=== PATIENT | male | born 2005 | race Caucasian/White ===

== ENCOUNTER 2025-01-09 17:15 | Emergency (ER) | payer BC, MEDICAID, SELFPAY ==
[2025-01-09 17:15] VITALS: BP 109/72; PULSE 86; RESP 19; TEMP 36.5; O2SAT 98; BMI 26.6
--- NOTE | 2025-01-09 17:17 | ED_ITS ---
<Statement entered by Ariana Reich DO - 01/09/25 22:26> I was consulted by the MARKIE, and we discussed the complexity of the problems being addressed. I approved the treatment and management plan for this patient's care in the emergency department, thus performing a substantive portion of the medical decision making. Ariana Reich DO Discharge Plan Disposition Patient Disposition: Home, Self-Care Condition: Good Prescriptions Prescriptions: No Action No Known Home Medications Referrals Follow up/Referrals: Lina Strange APRN [Primary Care Provider] - See instructions Activity Restrictions/Add. Instructions Additional Instructions/Restrictions: Please follow-up this week with your PCP. Patient needs to have further outpatient workup from neurology including MRI and neurology evaluation. If he has any decreased level of consciousness intractable vomiting intractable headache return to the emergency department immediately. Clinical Impressions Clinical Impression: Seizure-like activity Instructions Patient Instructions: DI for Seizure Disorder -- Adult, DI for Closed Head Injury Print Language Print Language: Ecuadorean Discharge ED Provider: Ariana Reich General Adult HPI <CHONG Hermosillo - Last Filed: 01/09/25 20:05> General Chief complaint: Seizure Stated complaint: cant walk Time Seen by Provider: 01/09/25 17:16 History of Present Illness HPI narrative: Patient presents for seizure-like activity. The patient is nonverbal with autism and cannot provide any history whatsoever. All of the history comes from the father at the bedside. The patient and his brother live in the basement of the parents home. Brother was playing on the computer and heard noises coming out of his brother's bedroom and he found his brother laid across the bed gurgling . He was awake but nonresponsive to any stimuli. At baseline patient is usually verbally and physically self stimulates this was different. The father noted that he was having gasping breaths and had spit at his mouth but he did not notice any tonic-clonic activity neither did the brother. Patient does not have a known seizure disorder and prior to this was his normal baseline. There is no report of cough chest pain shortness of breath headache exposure to recent illness nausea vomiting diarrhea. Related Data Home Medications ?Medication ?Instructions ?Recorded ?Confirmed No Known Home Medications 01/09/25 01/09/25 Allergies Allergy/AdvReac Type Severity Reaction Status Date / Time No Known Allergies Allergy Verified 01/09/25 17:43 PFSH <CHONG Hermosillo - Last Filed: 01/09/25 20:05> [facility] Disclaimer: The information contained in this section may have been updated after the patient was seen, as this information can be updated by other users. Social History Smoking Status: Never smoker alcohol intake: never current occupational status: disabled Travel in the last 8 weeks: None <CHONG Hermosillo - Last Filed: 01/09/25 20:05> ROS Obtained: Yes Systems reviewed as appropriate & no additional complaints except as documented Physical Exam <CHONG Hermosillo - Last Filed: 01/09/25 20:05> General General appearance: alert Head Head exam: other (Abrasion in the left upper forehead hairline that hematoma) Eye Eye exam: Present normal appearance, PERRL and EOMI ENT ENT exam: Present normal exam and normal oropharynx Neck Neck exam: Present normal inspection, full ROM, trachea midline and other (No carotid bruits) Chest Chest inspection: Present normal inspection and symmetric chest wall rise Respiratory Respiratory exam: Present normal lung sounds bilaterally Cardiovascular Cardiovascular exam: Present regular rate and normal rhythm Neurological Exam Neurological exam: Present alert Medical Decision Making <CHONG Hermosillo - Last Filed: 01/09/25 20:05> Medical Records Medical records reviewed: Yes I reviewed the patient's medical records. Screening: Per USPSTF and CDC recommendations, given the prevalence of disease in our region, it is our hospital?s policy to screen for HIV and viral Hepatitis for all patients aged 18 and over and those with ongoing risk factors. Juliano Inquiry Pt receiving controlled substance: No Vital Signs: 01/09/25 17:15 01/09/25 17:30 01/09/25 18:00 Temperature 97.7 F Temperature Source Oral Pulse Rate 106 H 92 H Pulse Rate [Right] 86 Respiratory Rate 19 14 14 Blood Pressure 118/75 113/82 Blood Pressure [Right Arm] 109/72 L Blood Pressure Mean [Right Arm] 84 Blood Pressure Source [Right Arm] Automatic Cuff 02 Sat by Pulse Oximetry 98 99 97 Oxygen Delivery Method Room Air Room Air Room Air 01/09/25 18:43 01/09/25 18:45 01/09/25 19:13 Temperature 98.4 F Temperature Source Oral Pulse Rate 95 H 98 H 91 H Pulse Rate [Right] Respiratory Rate 20 Blood Pressure 129/80 125/83 Blood Pressure [Right Arm] Blood Pressure Mean [Right Arm] Blood Pressure Source [Right Arm] 02 Sat by Pulse Oximetry 97 96 Oxygen Delivery Method Room Air Room Air Lab Data Lab results reviewed: Yes I reviewed the patient's lab results. Lab Results 01/09/25 17:15: WBC 7.6, RBC 5.30, Hgb 14.8, Hct 42.1, MCV 79.4 L, MCH 27.9, MCHC 35.2, RDW 12.6, Plt Count 302, MPV 10.3, Neut % (Auto) 42.9, Lymph % (Auto) 39.5, Hart % (Auto) 8.0, Eos % (Auto) 8.4, Baso % (Auto) 0.8, Neut # (Auto) 3.3, Lymph # (Auto) 3.0, Hart # (Auto) 0.6, Eos # (Auto) 0.6 H, Baso # (Auto) 0.1, Sodium 136, Potassium 4.1, Chloride 103, Carbon Dioxide 22, Anion Gap 15.1 H, BUN 12, Creatinine 0.70, Estimated GFR 145, Est GFR ( Amer) 176, Glucose 135 H, Lactate 3.6 H, Calcium 8.7, Total Bilirubin 0.9, AST 40, ALT 55, Alkaline Phosphatase 95, Total Creatine Kinase 104, Total Protein 6.9, Albumin 4.5, Globulin 2.4, Albumin/Globulin Ratio 1.9 H 01/09/25 17:19: SARS-CoV-2 (PCR) Not detected, Influenza A Untype (PCR) Not detected, Influenza Type B (PCR) Not detected 01/09/25 17:15 01/09/25 17:15 Orders (Tests/Meds): ED MEDICATIONS Discontinued Medications Generic Name Dose Route Start Last Admin Trade Name Freq PRN Reason Stop Dose Admin Iopamidol 80 ml 01/09/25 18:37 01/09/25 18:37 Iopamidol-370 (76%);100ml Bottle IV 01/09/25 18:38 80 ml ONCE ONE Administration Sodium Chloride 40 ml 01/09/25 18:37 01/09/25 18:37 0.9 % Sodium Chloride 50 Ml Vial IV 01/09/25 18:38 40 ml ONCE ONE Administration Sodium Chloride 10 ml 01/09/25 18:37 Sodium Chloride 0.9% 10ml Syr (Rad Only) IV 02/08/25 18:36 NEEDED PRN Maintain IV Site ORDERS Category Date Time Status CT angio head Stat Cat Scan 01/09/25 17:[address] angio neck Stat Cat Scan 01/09/25 17:[address] cervical spine wo con Stat Cat Scan 01/09/25 17:[address] head/brain wo con Stat Cat Scan 01/09/25 17:18 Completed XR chest portable Stat Exams 01/09/25 17:18 Completed CBC w/Auto Diff [Complete Blood Count Auto Diff] Stat Lab 01/09/25 17:15 Completed CK [Creatine Kinase] Stat Lab 01/09/25 17:15 Completed CMP [Comprehensive Metabolic Panel] Stat Lab 01/09/25 17:15 Completed Lactic Acid Stat Lab 01/09/25 17:15 Completed Rapid PCR Covid and Flu A/B Stat Lab 01/09/25 17:19 Completed Medical Decision Narrative: In summary patient is a 19-year-old male who presents to the emergency department for evaluation of seizure-like activity. Patient is hemodynamically stable with a blood pressure 109/72 heart rate 86 respiratory rate is 19 satting at 98% on room air upon arrival, afebrile and 97.7. Physical exam shows an abrasion to the left upper forehead but there is no palpable bony deformities or hematomas. Patient is nonverbal at baseline and cannot comply at baseline with simple instructions. He does apparently answer to his name no focal neurologic deficits currently and he moves all 4 extremities.. Differential diagnosis includes seizure versus intracranial abnormality versus vascular abnormality versus infection. Initial workup will be conducted with hematologic labs CT scan of the head without contrast CTA of the head and neck twelve-lead EKG urinalysis.. Initial interventions include were considered however patient has no specific complaints or deficits thus deferred for now. Father confirms that patient is at his normal functional baseline. Initial workup reviewed by me shows that his hematologic labs are nonactionable however patient does have a lactate of 3.6 but his CK is only 104 and my informal interpretation of his CT scans shows no acute intracranial or vascular abnormality prior to her radiology read. Upon repeat evaluation patient remains at his functional baseline awake and interactive moving all 4 extremities with no focal neurologic deficits. Given this patient is appropriate for discharge with follow-up with his PCP within 48 hours for further neurologic workup and strict return cautions. Patient given close head injury precautions. <Ariana Reich, DO - Last Filed: 01/09/25 17:59> Vital Signs: 01/09/25 17:15 01/09/25 17:30 01/09/25 18:00 Temperature 97.7 F Temperature Source Oral Pulse Rate 106 H 92 H Pulse Rate [Right] 86 Respiratory Rate 19 14 14 Blood Pressure 118/75 113/82 Blood Pressure [Right Arm] 109/72 L Blood Pressure Mean [Right Arm] 84 Blood Pressure Source [Right Arm] Automatic Cuff 02 Sat by Pulse Oximetry 98 99 97 Oxygen Delivery Method Room Air Room Air Room Air 01/09/25 18:43 01/09/25 18:45 01/09/25 19:13 Temperature 98.4 F Temperature Source Oral Pulse Rate 95 H 98 H 91 H Pulse Rate [Right] Respiratory Rate 20 Blood Pressure 129/80 125/83 Blood Pressure [Right Arm] Blood Pressure Mean [Right Arm] Blood Pressure Source [Right Arm] 02 Sat by Pulse Oximetry 97 96 Oxygen Delivery Method Room Air Room Air Lab Data Lab Results 01/09/25 17:15: WBC 7.6, RBC 5.30, Hgb 14.8, Hct 42.1, MCV 79.4 L, MCH 27.9, MCHC 35.2, RDW 12.6, Plt Count 302, MPV 10.3, Neut % (Auto) 42.9, Lymph % (Auto) 39.5, Hart % (Auto) 8.0, Eos % (Auto) 8.4, Baso % (Auto) 0.8, Neut # (Auto) 3.3, Lymph # (Auto) 3.0, Hart # (Auto) 0.6, Eos # (Auto) 0.6 H, Baso # (Auto) 0.1, Sodium 136, Potassium 4.1, Chloride 103, Carbon Dioxide 22, Anion Gap 15.1 H, BUN 12, Creatinine 0.70, Estimated GFR 145, Est GFR ( Amer) 176, Glucose 135 H, Lactate 3.6 H, Calcium 8.7, Total Bilirubin 0.9, AST 40, ALT 55, Alkaline Phosphatase 95, Total Creatine Kinase 104, Total Protein 6.9, Albumin 4.5, Globulin 2.4, Albumin/Globulin Ratio 1.9 H 01/09/25 17:19: SARS-CoV-2 (PCR) Not detected, Influenza A Untype (PCR) Not detected, Influenza Type B (PCR) Not detected Orders (Tests/Meds): ED MEDICATIONS Discontinued Medications Generic Name Dose Route Start Last Admin Trade Name Freq PRN Reason Stop Dose Admin Iopamidol 80 ml 01/09/25 18:37 01/09/25 18:37 Iopamidol-370 (76%);100ml Bottle IV 01/09/25 18:38 80 ml ONCE ONE Administration Sodium Chloride 40 ml 01/09/25 18:37 01/09/25 18:37 0.9 % Sodium Chloride 50 Ml Vial IV 01/09/25 18:38 40 ml ONCE ONE Administration Sodium Chloride 10 ml 01/09/25 18:37 Sodium Chloride 0.9% 10ml Syr (Rad Only) IV 02/08/25 18:36 NEEDED PRN Maintain IV Site ORDERS Category Date Time Status CT angio head Stat Cat Scan 01/09/25 17:[address] angio neck Stat Cat Scan 01/09/25 17:[address] cervical spine wo con Stat Cat Scan 01/09/25 17:[address] head/brain wo con Stat Cat Scan 01/09/25 17:18 Completed XR chest portable Stat Exams 01/09/25 17:18 Completed CBC w/Auto Diff [Complete Blood Count Auto Diff] Stat Lab 01/09/25 17:15 Completed CK [Creatine Kinase] Stat Lab 01/09/25 17:15 Completed CMP [Comprehensive Metabolic Panel] Stat Lab 01/09/25 17:15 Completed Lactic Acid Stat Lab 01/09/25 17:15 Completed Rapid PCR Covid and Flu A/B Stat Lab 01/09/25 17:19 Completed ECG Data Tracing #1: I reviewed this ECG and interpreted as documented below: Normal sinus rhythm with a ventricular rate of 95 bpm. Benign early repolarization. No acute STEMI. Normal intervals ECG initial impression date: 01/09/25 ECG initial impression time: 17:53 Critical Care <CHONG Hermosillo - Last Filed: 01/09/25 20:05> Critical Care Time Critical Care Time: No
--- NOTE | 2025-01-09 17:18 | CT_ITS ---
PROCEDURE INFORMATION: Exam: CT Head Without Contrast Exam date and time: 01/09/2025 6:22 PM Age: 19 years old Clinical indication: Injury or trauma; Fall; Blunt trauma (contusions or hematomas) TECHNIQUE: Imaging protocol: Computed tomography of the head without contrast. Radiation optimization: All CT scans at this facility use at least one of these dose optimization techniques: automated exposure control; mA and/or kV adjustment per patient size (includes targeted exams where dose is matched to clinical indication); or iterative reconstruction. COMPARISON: CT HEAD/BRAIN WO CON 01/09/2025 6:22 PM FINDINGS: Brain: No hemorrhage. No intra-axial or extra-axial lesions or masses. No midline shift. Cerebral ventricles: No ventriculomegaly. Paranasal sinuses: Visualized sinuses are well aerated. No fluid levels. Mastoid air cells: Visualized mastoid air cells are well aerated. Bones: No acute fractures or bone lesions. Soft tissues: No abnormalities. IMPRESSION: No acute intracranial abnormalities.
--- NOTE | 2025-01-09 17:18 | CT_ITS ---
PROCEDURE INFORMATION: Exam: CT Cervical Spine Without Contrast Exam date and time: 01/09/2025 6:24 PM Age: 19 years old Clinical indication: Injury or trauma; Fall; Blunt trauma TECHNIQUE: Imaging protocol: Computed tomography of the cervical spine without contrast. Radiation optimization: All CT scans at this facility use at least one of these dose optimization techniques: automated exposure control; mA and/or kV adjustment per patient size (includes targeted exams where dose is matched to clinical indication); or iterative reconstruction. COMPARISON: CT CERVICAL SPINE WO CON 01/09/2025 6:24 PM FINDINGS: Bones: No acute fracture. Normal alignment. No significant disc bulge or herniation. No severe spinal canal stenosis. No significant neural foraminal narrowing. Lungs: Lung apices are normal. Soft tissues: No paraspinal or prevertebral soft tissue masses. IMPRESSION: No acute findings in the cervical spine.
--- NOTE | 2025-01-09 17:18 | XR_ITS ---
PROCEDURE INFORMATION: Exam: XR Chest Exam date and time: 01/09/2025 5:52 PM Age: 19 years old Clinical indication: Injury or trauma; Fall; Other: Pain TECHNIQUE: Imaging protocol: Radiologic exam of the chest. Views: 1 view. Portable upright chest x-ray. COMPARISON: No relevant prior studies available. FINDINGS: Lungs: No consolidation or lung nodules. Pleural spaces: No pleural effusion. No pneumothorax. Heart/Mediastinum: No abnormalities. No cardiomegaly. No pulmonary vascular congestion. Bones/joints: No fractures or bone lesions. Leftward curvature of the thoracic spine. IMPRESSION: No acute findings in the chest.
--- NOTE | 2025-01-09 17:19 | ECG_ITS ---
APPROVED REPORT Exam: Resting ECG HR:95 bpm ECG Measurements Heart Rate 95 AXES VT 179 P 48 QRSd 90 QRS 86 QT 330 T 46 QTc 382 Conclusion SINUS RHYTHM EARLY REPOLARIZATION [ST ELEVATION WITH NORMALLY INFLECTED T-WAVE] No STEMI Electronically signed by : SMILEY GONZALEZ, 01/09/2025 23:11:53
--- NOTE | 2025-01-09 17:21 | PC.NURSE ---
FATHER AT BEDSIDE
--- NOTE | 2025-01-09 17:25 | PC.NURSE ---
Nikolas Guzman at bedside s/w father
[2025-01-09 17:28] LABS: Basophils # 0.1 K/mm3 (0-0.2); Basophils % 0.8 % (0.1-2.0); Eosinophils # 0.6 K/mm3 (0.0-0.4); Eosinophils % 8.4 % (0.1-12.0); Hematocrit 42.1 % (42.0-52.0); Hemoglobin 14.8 g/dL (14.1-18.0); Lymphocytes % 39.5 % (10-50); Mean Corpuscular HGB Conc 35.2 g/dL (31.8-35.4); Mean Corpuscular Hemoglobin 27.9 pg (27.0-31.2); Mean Corpuscular Volume 79.4 fl (80-94); Mean Platelet Volume 10.3 fl (7.4-10.4); Monocytes # 0.6 K/mm3 (0.1-1.0); Neutrophils # 3.3 K/mm3 (1.8-7.8); Neutrophils % 42.9 % (37.0-80.0); Platelet Count 302 K/mm3 (142-424); Red Cell Distribution Width 12.6 % (11.5-17.5); White Blood Count 7.6 K/mm3 (4.5-13.0)
[2025-01-09 17:30] VITALS: BP 118/75; PULSE 106; RESP 14; O2SAT 99
[2025-01-09 17:30] LABS: Coronavirus 19, PCR Not Detected (NotDetected); Influenza A, PCR Not Detected (NotDetected); Influenza B, PCR Not Detected (NotDetected)
--- NOTE | 2025-01-09 17:31 | CT_ITS ---
PROCEDURE INFORMATION: Exam: CTA Neck With Contrast Exam date and time: 01/09/2025 6:28 PM Age: 19 years old Clinical indication: Injury or trauma; Fall; Blunt trauma; Head; Additional info: Fall possible seizure TECHNIQUE: Imaging protocol: Computed tomographic angiography of the neck with contrast. Exam focused on the cervical segments of the vasculature. 3D rendering (Not supervised by radiologist): MIP and/or 3D reconstructed images were created by the technologist. Radiation optimization: All CT scans at this facility use at least one of these dose optimization techniques: automated exposure control; mA and/or kV adjustment per patient size (includes targeted exams where dose is matched to clinical indication); or iterative reconstruction. Contrast material: ISOVUE 370; Contrast volume: 80 ml; Contrast route: INTRAVENOUS (IV); COMPARISON: CT CERVICAL SPINE WO CON 01/09/2025 6:24 PM FINDINGS: Right common carotid artery: No stenosis. No dissection or occlusion. Right internal carotid artery: No stenosis of the extracranial segment. No dissection or occlusion. Right external carotid artery: No occlusion or stenosis of the origin. Left common carotid artery: No stenosis. No dissection or occlusion. Left internal carotid artery: No stenosis of the extracranial segment. No dissection or occlusion. Left external carotid artery: No occlusion or stenosis of the origin. Right vertebral artery: No stenosis. No dissection or occlusion. Left vertebral artery: No stenosis. No dissection or occlusion. Soft tissues: No masses or edema. Bones/joints: No acute fracture, subluxations, or bone lesions. IMPRESSION: No arterial stenosis or occlusion in the neck. REFERENCES: NASCET CRITERIA. The degree of stenosis in the cervical segment of the internal carotid artery is based on NASCET criteria. Normal is no stenosis. Mild is less than 50% stenosis. Moderate is 50-69% stenosis. Severe is 70% to 99% stenosis. Total occlusion is no detectable patent lumen.
--- NOTE | 2025-01-09 17:31 | CT_ITS ---
PROCEDURE INFORMATION: Exam: CTA Head With Contrast, Arteriography Exam date and time: 01/09/2025 6:28 PM Age: 19 years old Clinical indication: Injury or trauma; Fall; Blunt trauma; Head; Additional info: Fall possible seizure TECHNIQUE: Imaging protocol: Computed tomographic angiography of the head with contrast. Exam focused on the arteries. 3D rendering (Not supervised by radiologist): MIP and/or 3D reconstructed images were created by the technologist. Radiation optimization: All CT scans at this facility use at least one of these dose optimization techniques: automated exposure control; mA and/or kV adjustment per patient size (includes targeted exams where dose is matched to clinical indication); or iterative reconstruction. Contrast material: ISOUVE 370; Contrast volume: 80 ml; Contrast route: INTRAVENOUS (IV); COMPARISON: CT ANGIO HEAD 01/09/2025 6:28 PM FINDINGS: ANTERIOR CIRCULATION: Right internal carotid artery: Intracranial segment is patent with no significant stenosis. No aneurysm. Right middle cerebral artery: No occlusion or significant stenosis. No aneurysm. Right anterior cerebral artery: No occlusion or significant stenosis. No aneurysm. Left internal carotid artery: Intracranial segment is patent with no significant stenosis. No aneurysm. Left middle cerebral artery: No occlusion or significant stenosis. No aneurysm. Left anterior cerebral artery: No occlusion or significant stenosis. No aneurysm. POSTERIOR CIRCULATION: Right vertebral artery: No occlusion or significant stenosis. No aneurysm. Left vertebral artery: No occlusion or significant stenosis. No aneurysm. Basilar artery: No occlusion or significant stenosis. No aneurysm. Right posterior cerebral artery: No occlusion or significant stenosis. No aneurysm. Left posterior cerebral artery: No occlusion or significant stenosis. No aneurysm. Brain: No definite mass, mass effect, or midline shift. Cerebral ventricles: No ventriculomegaly. Bones/joints: No acute fracture or focal bone lesions. Soft tissues: No masses or swelling. IMPRESSION: No large vessel occlusion. No acute intracranial abnormalities.
[2025-01-09 17:38] LABS: Albumin Level 4.5 g/dl (3.5-5.0); Chloride 103 mmol/L (98-107); Potassium 4.1 mmoL/L (3.5-5.1); Sodium 136 mmol/L (136-145)
[2025-01-09 17:41] LABS: Alanine Aminotransferase 55 U/L (12-78); Albumin/Globulin Ratio 1.9 (1.1-1.8); Alkaline Phosphatase 95 U/L (38-126); Anion Gap 15.1 mEq/L (5-15); Aspartate Amino Transferase 40 U/L (17-59); Bilirubin,Total 0.9 mg/dl (0.2-1.3); Blood Urea Nitrogen 12 mg/dl (9-20); Calcium 8.7 mg/dl (8.4-10.2); Carbon Dioxide 22 mmol/L (22.0-30.0); Estimated Glomerular Filt Rate 145 ml/min (>60); GFR (African American) 176 ML/MIN (>60); Globulin 2.4 g/dL (1.3-3.2); Glucose 135 mg/dl (74-100); Total Protein,Serum 6.9 g/dl (6.3-8.2)
[2025-01-09 18:00] VITALS: BP 113/82; PULSE 92; RESP 14; O2SAT 97
[2025-01-09 18:01] LABS: Creatine Kinase 104 U/L (55-170)
[2025-01-09 18:12] LABS: Lactic Acid 3.6 mmol/L (0.7-2.1)
--- NOTE | 2025-01-09 18:13 | PC.NURSE ---
ROUNDED ON THE PT. THE PT DAD VOICES THAT THEY DO NOT NEED ANYTHING AT THIS TIME. CALL LIGHT IS WITHIN REACH OF THE PT. THE PT DAD IS PRESENT AT THE BEDSIDE.
[2025-01-09] MEDS: IOPAMIDOL-370 (76%);100ML BOTTLE 80 ML IV (18:37)
[2025-01-09] MEDS: 0.9 % SODIUM CHLORIDE 50 ML VIAL 40 ML IV (18:37)
[2025-01-09 18:43] VITALS: BP 129/80; PULSE 95; O2SAT 97
[2025-01-09 18:45] VITALS: PULSE 98; O2SAT 96
[2025-01-09 19:13] VITALS: BP 125/83; PULSE 91; RESP 20; TEMP 36.9; O2SAT 100
[2025-01-09 21:52] LABS: Reflex Lactic Add Lactic Reflex
== END 2025-01-09 19:21 | disposition home or self-care (01) ==
PROVIDERS: Physician Assistant; Emergency Provider Emergency Medicine; PCP Nurse Practitioner
DX: R56.9 Unspecified convulsions (principal); F84.0 Autistic disorder
CPT/HCPCS: 70450; 70496; 70498; 71045; 72125; 80053; 82550; 83605; 85025; 87636; 93005; 99285; Q9967